=== PATIENT | male | born 1995 | race Caucasian/White ===

== ENCOUNTER 2021-01-03 14:56 | Emergency (ER) | payer BC, OTHER ==
[2021-01-03 16:06] VITALS: BP 144/90; PULSE 93
--- NOTE | 2021-01-03 16:15 | EDM.PDOC ---
ED HPI GENERAL MEDICAL PROBLEM - General Chief Complaint: Respiratory Problem Stated Complaint: COUGH\SORE THROAT Time Seen by Provider: 01/03/21 16:15 - History of Present Illness INITIAL COMMENTS - FREE TEXT/NARRATIVE: 25-year-old male presents the emergency room with a cough congestion and sore throat. This is been going on for a month but seems to be getting worse over the last several days. Cold exposure and being outside tends to make it worse and dust tends to make it worse the patient works in the [employer]. He has frequent coughs at night from secretions settling near the back of his throat. The cough seems to be getting worse over the last several days and it is turning more and more productive bringing up off-color sputum. He has not noticed any blood. He is not aware of any fevers or chills Throat Pain Score (Numeric/FACES): 7 - Related Data Allergies Allergy/AdvReac Type Severity Reaction Status Date / Time prednisone Allergy Depression Verified 01/03/21 15:57 Home Meds: Home Meds buPROPion HCL [Wellbutrin SR] 150 mg PO DAILY 01/03/21 [History] traZODone 50 mg PO BEDTIME PRN 01/03/21 [History] Past Medical History - Past Health History Medical/Surgical History: Denies Medical/Surgical History Musculoskeletal History: Reports: Back Pain, Chronic Psychiatric History: Reports: Anxiety, Depression Other Psychiatric History: States anxiety has never been diagnosed - Infectious Disease History Infectious Disease History: Reports: Novel Coronavirus - Past Surgical History HEENT Surgical History: Reports: Adenoidectomy, Oral Surgery, Tonsillectomy Social & Family History - Family History Family Medical History: No Pertinent Family History - Tobacco Use Tobacco Use Status *Q: Current Every Day Tobacco User Years of Tobacco use: 10 Packs/Tins Daily: 1 - Caffeine Use Caffeine Use: Reports: Coffee, Energy Drinks, Soda - Recreational Drug Use Recreational Drug Use: No ED ROS GENERAL - Review of Systems Review Of Systems: See Below Constitutional: Reports: No Symptoms HEENT: Reports: Rhinitis, Sinus Problem. Denies: Vertigo Respiratory: Reports: Shortness of Breath, Cough, Sputum. Denies: Wheezing, Pleuritic Chest Pain, Hemoptysis Cardiovascular: Reports: No Symptoms GI/Abdominal: Reports: No Symptoms : Reports: No Symptoms Musculoskeletal: Reports: No Symptoms Skin: Reports: No Symptoms Neurological: Reports: No Symptoms ED EXAM, GENERAL - Physical Exam Exam: See Below Exam Limited By: No Limitations General Appearance: Alert, No Apparent Distress Eye Exam: Bilateral Eye: Normal Inspection Ears: Normal External Exam, Normal Canal, Hearing Grossly Normal, Normal TMs Nose: Normal Inspection, Normal Mucosa, No Blood Throat/Mouth: Normal Inspection, Normal Lips, Normal Teeth, Normal Gums, Normal Oropharynx, Normal Voice, No Airway Compromise Head: Atraumatic, Normocephalic Neck: Supple, Non-Tender, Full Range of Motion. No: Lymphadenopathy (L), Lymphadenopathy (R) Respiratory/Chest: No Respiratory Distress, Lungs Clear, Normal Breath Sounds Cardiovascular: Regular Rate, Rhythm, No Edema, No Murmur GI/Abdominal: Normal Bowel Sounds, Soft, Non-Tender Course - Vital Signs Last Recorded V/S: Last Vital Signs Temp 36.7 C 01/03/21 16:05 Pulse 93 01/03/21 16:05 Resp 18 01/03/21 16:05 BP 144/90 H 01/03/21 16:05 Pulse Ox 96 01/03/21 16:05 - Orders/Labs/Meds Orders: Active Orders 24 hr Category Date Time Status RT Post Treatment Assessment [RC] Click to Edit Care 01/03/21 18:07 Active RT Pre-Treatment Assessment [RC] Click to Edit Care 01/03/21 18:07 Active Chest 2V [CR] Stat Exams 01/03/21 18:06 Taken Albuterol [Proventil HFA] Med 01/03/21 18:15 Active See Dose Instructions INH Q4H Medication Orders Albuterol (Albuterol 6.7 Gm Inhaler) 0 gm INH Q4H HERNANDO Last Admin: 01/03/21 18:34 Dose: 2 puff Documented by: SUHA Labs: Laboratory Tests 01/03/21 01/03/21 Range/Units 16:00 16:00 Influenza Type A RNA Negative (NEGATIVE) Influenza Type B RNA Negative (NEGATIVE) SARS-CoV-2 RNA (DB) Negative (NEGATIVE) Group A Strep (PCR) Not detected (NOT DETECT) Meds: Medications Generic Name Dose Route Start Last Admin Trade Name Freq PRN Reason Stop Dose Admin Albuterol 0 gm 01/03/21 18:15 01/03/21 18:34 Albuterol 6.7 Gm Inhaler INH 2 puff Q4H HERNANDO Administration - Re-Assessments/Exams Free Text/Narrative Re-Assessment/Exam: 01/03/21 19:28 Patient was started on albuterol MDI he thinks this helps and he agrees to use this 2 puffs every 4 hours while awake. Chest x-ray does not show any obvious infiltrate. However I Ch[place] start him on doxycycline 100 mg twice daily with the duration of his cough and now it is becoming quite productive. He will receive #14 from the machine out in the waiting room. Departure - Departure Time of Disposition: 19:29 Disposition: Home, Self-Care 01 Clinical Impression: URI (upper respiratory infection), Bronchitis - Discharge Information Referrals: Luis Frias MD [Primary Care Provider] - Forms: ED Department Discharge Additional Instructions: Return to the emergency room with any questions problems or worsening symptoms. You were given a albuterol inhaler with a spacer use this 2 puffs every 4 hours while awake. You were also started on doxycycline you got this filled through the machine in the waiting room take 1 pill twice daily until all gone if you get to be outside for prolonged periods of time make sure your skin is covered up. Follow-up with your regular physician at the end of this week if not significantly better. Sepsis Event Note (ED) - Focused Exam Vital Signs: Vital Signs Temp Pulse Resp BP Pulse Ox 01/03/21 16:05 36.7 C 93 18 144/90 H 96 - My Orders Last 24 Hours: My Active Orders 01/03/21 18:06 Chest 2V [CR] Stat 01/03/21 18:07 RT Post Treatment Assessment [RC] Click to Edit RT Pre-Treatment Assessment [RC] Click to Edit 01/03/21 18:15 Albuterol [Proventil HFA] See Dose Instructions INH Q4H - Assessment/Plan Last 24 Hours: My Active Orders 01/03/21 18:06 Chest 2V [CR] Stat 01/03/21 18:07 RT Post Treatment Assessment [RC] Click to Edit RT Pre-Treatment Assessment [RC] Click to Edit 01/03/21 18:15 Albuterol [Proventil HFA] See Dose Instructions INH Q4H
[2021-01-03] MEDS ORDERED: Albuterol 6.7 GM Inhaler INH SCH (18:15)
--- NOTE | 2021-01-04 06:53 | CR ---
Chest: 2 views of the chest were obtained. Comparison: Prior chest x-ray of 02/08/14. Heart size and mediastinum are normal. Lungs are clear with no acute parenchymal change. Bony structures show nothing acute. Impression: 1. Nothing acute is seen on frontal chest x-ray. Diagnostic code #1
== END 2021-01-03 20:04 | disposition home or self-care (01) ==
LOC: JD.ED 14:56
DX: J06.9 Acute upper respiratory infection, unspecified (principal); J40 Bronchitis, not specified as acute or chronic; Z72.0 Tobacco use; Z20.822 Contact with and (suspected) exposure to COVID-19
CPT/HCPCS: 71046; 87635; 87651; 94640; 99283; A9270; 0240U; 87804; U0002